=== PATIENT | male | born 1965 | race Caucasian/White ===

== ENCOUNTER → 2021-02-16 16:21 | Outpatient (CLI) | payer OTHER, SELFPAY ==
[2021-02-16 17:22] LABS: Cholesterol 277 mg/dL (140-199); HDL Cholesterol 61 mg/dL (40-60); LDL Cholesterol Calculated 160 mg/dL (<100); Triglycerides 282 mg/dL (35-150)
[2021-02-16 17:35] LABS: Vitamin D 25 Hydroxy (D3) 26.9 ng/mL (30.0-100.0)
== END ==
PROVIDERS: PCP Student in an Organized Health Care Education/Training Program; Referring Provider Student in an Organized Health Care Education/Training Program; Visit Provider Student in an Organized Health Care Education/Training Program
DX: Z13.220 Encounter for screening for lipoid disorders (principal); E55.9 Vitamin D deficiency, unspecified
CPT/HCPCS: 36415; 80061; 82306